=== PATIENT | male | born 1975 | race Caucasian/White ===

== ENCOUNTER 2020-03-27 10:31 | Emergency (ER) | payer SELFPAY ==
[~2020-03-27] VITALS: Ht 177.8 cm; Wt 78.6 kg
[~2020-03-27 10:31] MED LIST: IBUP-1986 PO
[2020-03-27 10:53] VITALS: BP 106/68
[2020-03-27] MEDS ORDERED: ketorolac trometh. 30mg/ml inj. IM ONE (11:35)
[2020-03-27] MEDS ORDERED: CYCL-1 PO (11:37)
== END 2020-03-27 12:26 | disposition home or self-care (01) ==
LOC: ER 10:31
DX: S39.012A Strain of muscle, fascia and tendon of lower back, initial encounter (principal); Z79.899 Other long term (current) drug therapy; X50.0XXA Overexertion from strenuous movement or load, initial encounter; Y93.89 Activity, other specified; Y92.89 Other specified places as the place of occurrence of the external cause; Y99.8 Other external cause status
CPT/HCPCS: 96372; 99283; J1885

== ENCOUNTER 2021-01-05 16:49 | Emergency (ER) | payer MEDICAID, OTHER ==
[~2021-01-05] VITALS: Ht 160 cm; Wt 77.3 kg
[~2021-01-05 16:49] MED LIST changes: +CYCL-1 PO
[2021-01-05 16:53] VITALS: BP 154/94
[2021-01-05 17:49] LABS: EOSINOPHILS # (AUTO) 0.1 X10'3 (0-0.9); EOSINOPHILS % (AUTO) 1.9 % (0-6); MONOCYTES # (AUTO) 0.4 X10'3 (0-0.9)
[2021-01-05 17:52] LABS: BASOPHILS % (AUTO) 0.5 % (0-1); HEMATOCRIT 47.1 % (42.0-52.0); LYMPHOCYTES # (AUTO) 1.3 X10'3 (1.1-4.8); LYMPHOCYTES % (AUTO) 18.8 % (21-51); MEAN CORPUSCULAR HEMOGLOBIN 30.9 PG (27.0-31.0); MEAN CORPUSCULAR HGB CONC 33.9 g/dL (33.0-36.5); MEAN PLATELET VOLUME 7.8 FL (7.4-10.4); MONOCYTES % (AUTO) 5.8 % (2-12); NEUTROPHILS # (AUTO) 5.1 X10'3 (1.8-7.7); PLATELET COUNT 201 X10'3 (140-440); RED BLOOD COUNT 5.17 X10'6 (4.70-6.10); WHITE BLOOD COUNT 6.9 X10'3 (4.5-11.0)
[2021-01-05 18:06] LABS: ALANINE AMINOTRANSFERASE 25 U/L (12-78); ALBUMIN 3.8 G/DL (3.4-5.0); ALBUMIN/GLOBULIN RATIO 1.2 (1.1-1.5); ALKALINE PHOSPHATASE 81 IU/L (46-116); ANION GAP 10 (8-16); ASPARTATE AMINO TRANSFERASE 23 U/L (10-37); BILIRUBIN,TOTAL 0.5 MG/DL (0.1-1.0); BLOOD UREA NITROGEN 7 MG/DL (7-18); BUN/CREATININE RATIO 6.7 (5.4-32.0); CALCIUM 8.7 MG/DL (8.5-10.1); CHLORIDE 103 MMOL/L (99-107); CREATININE 1.05 MG/DL (0.60-1.10); GLUCOSE 104 MG/DL (70-104); SODIUM 141 MMOL/L (135-145); TOTAL CARBON DIOXIDE 28.3 MMOL/L (24-32); eGFR 77 ML/MIN
== END 2021-01-05 18:54 | disposition home or self-care (01) ==
LOC: ER 16:49
DX: R56.9 Unspecified convulsions (principal); F17.200 Nicotine dependence, unspecified, uncomplicated; Z79.899 Other long term (current) drug therapy
CPT/HCPCS: 36415; 70450; 80053; 85025; 99284

== ENCOUNTER 2023-06-15 22:09 | Emergency (ER) | payer MEDICAID ==
[~2023-06-15] VITALS: Ht 177.8 cm; Wt 70.0 kg
[2023-06-15 23:24] VITALS: BP 140/74; PULSE 58; RESP 18; O2SAT 94
[2023-06-16] MEDS ORDERED: ketorolac trometh. 30mg/ml inj. IV ONE
[2023-06-16] MEDS: ondansetron/PF 4mg/2ml inj IV ONE (00:33)
[2023-06-16] MEDS: ketorolac tromethamine 15mg/ml inj. IV ONE (00:34)
[2023-06-16] MEDS: morphine 4 MG/ML inj SYRINge IV ONE (00:38)
[2023-06-16 00:51] LABS: BASOPHILS # (AUTO) 0.1 X10'3 (0-0.2); BASOPHILS % (AUTO) 0.9 % (0-1); EOSINOPHILS # (AUTO) 0.1 X10'3 (0-0.9); EOSINOPHILS % (AUTO) 0.9 % (0-6); HEMATOCRIT 47.7 % (42.0-52.0); HEMOGLOBIN 16.3 g/dl (14.0-17.9); LYMPHOCYTES # (AUTO) 1.4 X10'3 (1.1-4.8); LYMPHOCYTES % (AUTO) 17.5 % (21-51); MEAN CORPUSCULAR HEMOGLOBIN 31.7 PG (27.0-31.0); MEAN CORPUSCULAR HGB CONC 34.2 g/dL (33.0-36.5); MEAN CORPUSCULAR VOLUME 92.6 FL (78-98); MEAN PLATELET VOLUME 7.8 FL (7.4-10.4); MONOCYTES # (AUTO) 0.4 X10'3 (0-0.9); MONOCYTES % (AUTO) 5.2 % (2-12); NEUTROPHILS % (AUTO) 75.5 % (42-75); PLATELET COUNT 200 X10'3 (140-440); RED BLOOD COUNT 5.15 X10'6 (4.70-6.10); RED CELL DISTRIBUTION WIDTH 13.6 % (11.5-14.5); WHITE BLOOD COUNT 7.9 X10'3 (4.5-11.0)
[2023-06-16 01:01] LABS: ALBUMIN 3.7 G/DL (3.4-5.0); ANION GAP 10 (8-16); BLOOD UREA NITROGEN 8 MG/DL (7-18); BUN/CREATININE RATIO 9.3 (10.0-20.0); CALCIUM 8.7 MG/DL (8.5-10.1); CHLORIDE 104 MMOL/L (99-107); CREATININE 0.86 MG/DL (0.60-1.10); GLUCOSE 95 MG/DL (70-104); POTASSIUM 3.9 MMOL/L (3.5-5.1); SODIUM 139 MMOL/L (135-145); eCRCL 105 ML/MIN; eGFR > 90 ML/MIN
[2023-06-16 02:14] LABS: BILIRUBIN,URINE NEGATIVE (Neg); CLARITY,URINE CLEAR (Clear); COLOR,URINE YELLOW (Yellow); GLUCOSE, URINE NEGATIVE (Neg); KETONES,URINE 15 mg/dl (Neg); LEUKOCYTE ESTERASE ,URINE NEGATIVE (Neg); NITRITES, URINE NEGATIVE (Neg); OCCULT BLOOD,URINE NEGATIVE (Neg); PROTEIN,URINE NEGATIVE (Neg); UROBILINOGEN,URINE 0.2 E.U/dL (0.2-1.0)
[2023-06-16 02:16] LABS: UA COLLECTION TYPE URINAL
[2023-06-16] MEDS ORDERED: HYDR-3965 PO (02:36)
== END 2023-06-16 02:48 | disposition home or self-care (01) ==
LOC: ER 22:09
DX: M54.32 Sciatica, left side (principal); Z79.899 Other long term (current) drug therapy; Z79.1 Long term (current) use of non-steroidal anti-inflammatories (NSAID)
CPT/HCPCS: 36415; 72110; 80048; 81003; 85025; 96374; 96375; 99284; J1885; J2405